=== PATIENT | male | born 1990 | race Two or more races ===

== ENCOUNTER 2017-03-30 12:07 | Emergency (ER) | payer MEDICARE, MEDICAID ==
[~2017-03-30] VITALS: Ht 167.6 cm; Wt 98.6 kg
[2017-03-30 15:23] VITALS: BP 123/87
== END 2017-03-30 16:33 | disposition home or self-care (01) ==
LOC: ER 12:07
DX: J06.9 Acute upper respiratory infection, unspecified (principal)